=== PATIENT | female | born 1980 | race Caucasian/White ===

== ENCOUNTER 2021-08-17 11:39 | Emergency (ER) | payer OTHER, SELFPAY ==
[2021-08-17] MEDS ORDERED: Boostrix 0.5 ML (Tdap) VIAL ONE (14:32)
[2021-08-17] MEDS ORDERED: Acetaminophen 500 MG TAB ONE (14:32)
== END 2021-08-17 18:19 | disposition home or self-care (01) ==
LOC: CSHERS 11:39
DX: S60.222A Contusion of left hand, initial encounter (principal); S90.31XA Contusion of right foot, initial encounter; S10.91XA Abrasion of unspecified part of neck, initial encounter; S00.81XA Abrasion of other part of head, initial encounter; Y04.8XXA Assault by other bodily force, initial encounter; I10 Essential (primary) hypertension
CPT/HCPCS: 70498; 90471; 90715

== ENCOUNTER 2024-08-17 07:30 | Outpatient (CLI) | payer BC ==
[2024-08-17 08:53] LABS: #Basophils 0.04 10x3/uL (0.0-0.2); #Eosinophils 0.23 10x3/uL (0.0-0.5); #Monocytes 0.58 10x3/uL (0.0-1.1); #Neutrophils 4.26 10x3/uL (1.5-8.4); %Basophils 0.5 % (0.0-2.0); %Eosinophils 2.8 % (0.0-6.0); %Lymphocytes 38.4 % (18.0-47.0); %Monocytes 6.9 % (0.0-10.0); %Neutrophils 50.9 % (40.0-75.0); Hemoglobin 13.9 g/dL (12.0-15.5); Mean Corpuscular HGB CONC 33.1 g/dL (32.0-36.0); Mean Corpuscular Volume 84.7 fL (81.6-98.3); Mean Platelet Volume 9.4 fL (7.4-10.4); Platelet Count 290 10x3/uL (150-450); RBC Distribution Width 13.6 % (11.5-14.5); Red Blood Cell (RBC) Count 4.96 10x6/uL (3.90-5.03); White Blood Cell (WBC) Count 8.4 10x3/uL (3.5-10.5)
[2024-08-17 09:05] LABS: Anion Gap 13 mmol/L (10-20); BUN (Urea Nitrogen) 13 mg/dL (7.0-18.7); Calc. Creatinine Clearance 0 mL/min (70-130); Calcium 9.8 mg/dL (7.8-10.44); Carbon Dioxide 26 mmol/L (22-29); Chloride 104 mmol/L (98-107); Estimated GFR 103; Glucose 116 mg/dL (70-105); Potassium 3.5 mmol/L (3.5-5.1); Sodium 139 mmol/L (136-145)
== END 2024-08-17 07:31 | disposition home or self-care (01) ==
LOC: CSHLAB 07:30
PROVIDERS: ATTEND Surgery
DX: Z01.818 Encounter for other preprocedural examination (principal); R22.41 Localized swelling, mass and lump, right lower limb
CPT/HCPCS: 80048; 85025; 93005; 93010